=== PATIENT | male | born 1990 | race Caucasian/White ===

== ENCOUNTER 2018-06-12 16:16 | Emergency (ER) | payer OTHER ==
[2018-06-12] MEDS ORDERED: TDAP ADULT 0.5 ML INJ (BOOSTRIX) IM ONE (16:49)
--- NOTE | 2018-06-12 16:50 | EDPHY ---
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 Flap laceration. Occurred shortly prior to arrival. No extensor deficits. PHYSICAL EXAM (Prior to examination, patient consented to physical exam, hands were washed and my usual and customary physical exam procedures followed) 1) GENERAL: Well-developed, well-nourished, alert and oriented. Appears to be in no acute distress. 2) HEAD: Normocephalic 3) HEENT: sclera anicteric 4) LUNGS: Breathing comfortably. 5) SKIN: 2 cm flap laceration right 3rd MCP 6) MUSCULOSKELETAL: Right hand 3rd MCP flap laceration measuring 2 cm with viable flap tissue. Extension intact with no deficits. 7) NEUROLOGIC: Full sensation two-point discrimination Smoking Status: Never smoked Constitutional: Initial Vital Signs Temperature (C) 36.9 C 06/12/18 16:27 Heart Rate 92 06/12/18 16:27 Respiratory Rate 16 06/12/18 16:27 Blood Pressure 128/73 H 06/12/18 16:27 O2 Sat (%) 95 06/12/18 16:27 O2 Delivery Mode Room Air Allergies/Adverse Reactions: Penicillins Allergy (Verified 06/12/18 16:26) Sulfa (Sulfonamide Antibiotics) Allergy (Verified 06/12/18 16:26) MDM/Departure - MDM Procedures: Procedure: Laceration repair. I explained the indications, risks and benefits for both laceration repair and anesthetic administration. Verbal consent was obtained from the patient. The laceration on the right dorsal hand was anesthetized using 0.5% bupivicaine with epinephrine. After anesthetic administered the patient was observed for a period of time and had no apparent adverse effects. The wound was cleaned, prepped, draped in normal sterile fashion and explored to its base. No foreign body seen, no foreign bodies palpated. There were no deep structures involved. No tendon injury was identified. The wound was repaired with 2 simple interrupted 5 O Prolene sutures. The wound repair was simple. The procedure was performed by myself. Patient has been informed that scarring will occur, although efforts have been made to minimize this. - Depart Disposition: Home, Routine, Self-Care Clinical Impression: Laceration of right hand Qualifiers: Encounter type: initial encounter Foreign body presence: without foreign body Qualified Code(s): S61.411A - Laceration without foreign body of right hand, initial encounter Condition: Good Instructions: Laceration (ED), Care For Your Stitches (ED) Additional Instructions: Return to the ER if you develop redness, swelling, discharge, warmth to the wound, red streaks going up your arm, or any other symptoms that concern you. Referrals: Return, to the ER in 10 days for suture removal [Other] - As per Instructions
[2018-06-12 17:34] VITALS: BP 126/75
== END 2018-06-12 17:34 | disposition home or self-care (01) ==
PROC: 0HQFXZZ Repair Right Hand Skin, External Approach (ICD-10-PCS; principal; 2018-06-12)
DX: S61.411A Laceration without foreign body of right hand, initial encounter (principal); Z23 Encounter for immunization; X58.XXXA Exposure to other specified factors, initial encounter; Y99.0 Civilian activity done for income or pay; Y93.89 Activity, other specified